=== PATIENT | male | born 1960 | race Hispanic/Latino ===

== ENCOUNTER 2018-01-24 06:57 | Outpatient (CLI) | payer MEDICARE | END 2018-01-24 06:58 | disposition home or self-care (01) | LOC: BICULT 06:57 | PROVIDERS: ATTEND Internal Medicine Cardiovascular Disease | DX: R94.5 Abnormal results of liver function studies (principal); R93.2 Abnormal findings on diagnostic imaging of liver and biliary tract | CPT/HCPCS: 76700 ==

== ENCOUNTER 2019-06-05 05:35 | Emergency (ER) | payer MEDICARE ==
--- NOTE | 2019-06-05 08:24 | RAD ---
TWO VIEW CHEST: COMPARISON: 09/14/2016. INDICATION: Cough. FINDINGS: Evidence of prior sternotomy with grossly stable size to cardiac silhouette. Mild interstitial promi nence of each perihilar region. Chest is otherwise similar. IMPRESSION: Postoperative chest with findings that may relate to mild edema. Correlate clinically. POS: [facility]
== END 2019-06-05 06:51 | disposition home or self-care (01) ==
LOC: ERS 05:35
DX: J02.9 Acute pharyngitis, unspecified (principal); I11.0 Hypertensive heart disease with heart failure; I50.9 Heart failure, unspecified; E11.9 Type 2 diabetes mellitus without complications; Z79.82 Long term (current) use of aspirin; Z79.899 Other long term (current) drug therapy; Z79.4 Long term (current) use of insulin
CPT/HCPCS: 71046; 87804

== ENCOUNTER 2022-10-31 20:08 | Emergency (ER) | payer MEDICARE ==
[2022-10-31] MEDS ORDERED: Ibuprofen 800 MG TAB ONE (21:38)
[2022-10-31] MEDS ORDERED: Acetaminophen 500 MG TAB ONE (21:38)
[2022-10-31] MEDS ORDERED: Lidocaine 4% Patch TD SCH (21:45)
[2022-11-01] MEDS ORDERED: Transdermal Patch Removal TOP SCH (09:45)
== END 2022-11-01 00:25 | disposition home or self-care (01) ==
LOC: ERS 20:08
DX: S20.213A Contusion of bilateral front wall of thorax, initial encounter (principal); I11.0 Hypertensive heart disease with heart failure; I50.9 Heart failure, unspecified; E11.9 Type 2 diabetes mellitus without complications; Y92.812 Truck as the place of occurrence of the external cause